=== PATIENT | male | born 1980 | race Caucasian/White ===

== ENCOUNTER 2017-11-27 09:25 | Day surgery (SDC) | payer MEDICAID ==
[2017-11-26 08:04] VITALS: BMI 40.8
[2017-11-27] MEDS ORDERED: Iohexol 240 (50 ml) ONE (10:37)
[2017-11-27] MEDS ORDERED: Lidocaine 2% Jelly (Uro-Jet) ONE (10:37)
[2017-11-27] MEDS ORDERED: Ciprofloxacin 400mg/200ml D5W 400 MG/200 ML BAG IVPB ONE (10:37)
[2017-11-27] MEDS ORDERED: Propofol 10 mg/ml Inj (20 ML) ONE ×2 (10:38→10:56)
[2017-11-27] MEDS ORDERED: Midazolam 2 MG/2 ML VIAL ONE ×2 (10:38→10:56)
[2017-11-27] MEDS ORDERED: Lactated Ringer's 500 ML IV ONE (10:55)
[2017-11-27] MEDS ORDERED: Lactated Ringer's 1,000 ML IV ONE (11:32)
[2017-11-27] MEDS ORDERED: HYDROmorphone 0.5 mg/0.5 ml ISec IVP PRN (11:45)
[2017-11-27] MEDS ORDERED: Oxycodone/Acetaminophen 5/325 mg Tab PO PRN (12:02)
[2017-11-27] MEDS ORDERED: HYDROmorphone 0.5 mg/0.5 ml ISec ONE (12:11)
[2017-11-27 13:36] VITALS: O2SAT 100
[2017-11-27 13:40] VITALS: BP 145/90; PULSE 90; RESP 18; TEMP 98
--- NOTE | 2017-11-27 14:42 | RAD ---
PROCEDURE: Intraoperative Fluoroscopy. HISTORY: RT. RENAL PELVIC MASS FINDINGS: Fluoroscopic assistance was provided for retrograde study unilateral right side. Please refer to the operative report from [facility]. Total fluoroscopic time (continuous mode) utilized during the procedure: 80.3 seconds.
--- NOTE | 2017-12-04 01:33 | OP ---
PROCEDURE DATE: PREOPERATIVE DIAGNOSIS: Right renal mass, rule out transitional cell carcinoma. POSTOPERATIVE DIAGNOSIS: No evidence of any clear mass. PROCEDURE: Cysto, right retro, and brush biopsy of the right renal pelvis. DESCRIPTION OF PROCEDURE: While the patient in lithotomy position and after starting anesthesia, genitalia prepped and draped in sterile fashion. The patient given Cipro IV, cysto done, showed meatal stenosis which dilated. A cystoscopy inserted, the urethra normal, down to the bladder. The bladder revealed no tumor, no stone. Dome, lateral wall within normal limits and posterior wall within normal limits. Retrograde revealed the ureter normal and the calyceal system, two callus visualized well but there is no mass in the renal pelvis. The middle calyx did not visualize very well. The catheter removed. Catheter for the brush biopsy inserted to the location of the renal pelvis. The cytology done after washing the renal pelvis and the brush biopsy was taken from the same area and sent to pathology. The patient tolerated the procedure well. After removing the catheter and the scope, the patient transferred to the recovery room in stable condition. Td Jalloh MD
== END 2017-11-27 13:41 | disposition home or self-care (01) ==
LOC: C.SDS 09:25
PROVIDERS: ATTEND Specialist
DX: N28.89 Other specified disorders of kidney and ureter (principal); R31.0 Gross hematuria; R19.09 Other intra-abdominal and pelvic swelling, mass and lump
CPT/HCPCS: 52354; 88104; C1758; J0744; J1170; J7120